=== PATIENT | female | born 1995 | race Caucasian/White ===

== ENCOUNTER → 2016-08-26 | Outpatient (REF) | payer OTHER ==
[2016-08-26 22:44] LABS: CONTROL LINE UCG INT CTR LINE PRESENT
== END ==
LOC: M LAB REF 08:41
PROVIDERS: ATTEND Physician Assistant
DX: R35.0 Frequency of micturition (principal)

== ENCOUNTER → 2017-07-22 | Outpatient (REF) | payer OTHER ==
[2017-07-22 19:27] LABS: RUBELLA IgG QUALITATIVE IMMUNE (IMMUNE)
[2017-07-24 08:11] LABS: HERPES ZOSTER, VARICELLA IgG 286 index (Immune >165)
[2017-07-24 08:11] LABS: RUBEOLA IgG ANTIBODY >300.0 AU/mL (Immune >29.9)
== END ==
LOC: M LAB REF 16:33
DX: Z02.1 Encounter for pre-employment examination (principal)